=== PATIENT | female | born 1975 | race Caucasian/White ===

== ENCOUNTER 2017-10-10 09:33 | Emergency (ER) | payer OTHER ==
[2017-10-10 09:46] VITALS: RESP 16
--- NOTE | 2017-10-10 09:50 | C.PDOC ---
History Of Present Illness 42 y/o female presents to the ER complaining of a worsening sore throat for the past 6 day. She reports taking three doses of zpak with no relief. The patient admits to voice change and pain worsening with swallowing. Her TM upon arrival was 101. She denies any nausea, vomiting or dizziness. WORSENING SORE THROAT X 6 DAYS. ON ZPAK X 3 DOSES NO IMPROVE. TM 101. +VOICE CHANGE, WORSE W SWALLOWING. EXAM MILD DIST NONTOXIC HEENT +R TONSIL SWELL W W EXUDATE. +MUFFLED VOICE. NO DROOLING, STRIDOR. MMM NECK SUPPLE REMAINDER NEG Time Seen by Provider: 10/10/17 09:48 Chief Complaint (Nursing): ENT Problem History Per: Patient History/Exam Limitations: no limitations Onset/Duration Of Symptoms: Days Current Symptoms Are (Timing): Still Present Location Of Pain: Throat Associated Symptoms: Fever, Sore Throat. denies: Nausea, Vomiting Recent travel outside of the [place]: No Past Medical History Reviewed: Historical Data, Nursing Documentation, Vital Signs Vital Signs: Last Vital Signs Temp 98.0 F 10/10/17 12:41 Pulse 65 10/10/17 12:41 Resp 16 10/10/17 12:41 BP 107/70 10/10/17 12:41 Pulse Ox 98 10/10/17 13:59 - Medical History PMH: No Chronic Diseases Surgical History: No Surg Hx Family History: States: Unknown Family Hx - Social History Hx Tobacco Use: No Hx Alcohol Use: No Hx Substance Use: No - Immunization History Hx Tetanus Toxoid Vaccination: No Hx Influenza Vaccination: No Hx Pneumococcal Vaccination: No Review Of Systems Except As Marked, All Systems Reviewed And Found Negative. Constitutional: Positive for: Fever ENT: Positive for: Throat Pain Gastrointestinal: Negative for: Nausea, Vomiting Neurological: Negative for: Dizziness Physical Exam - Physical Exam Appears: Well, Non-toxic, No Acute Distress Skin: Normal Color, Warm, No Rash Head: Atraumatic, Normacephalic Eye(s): bilateral: Normal Inspection, PERRL, EOMI Ear(s): Bilateral: Normal Oral Mucosa: Moist, No Drooling, Other (scattered mucous lesions consistant with viral) Throat: Exudate (+R TONSIL SWELL W EXUDATE), Other (+MUFFLED VOICE) Neck: Normal ROM, Supple Chest: Symmetrical Cardiovascular: Rhythm Regular, No Murmur Respiratory: Normal Breath Sounds, Stridor, Other (NARD) Gastrointestinal/Abdominal: Bowel Sounds, Soft, No Tenderness Extremity: Normal ROM Extremity: Bilateral: Atraumatic, Normal Color And Temperature, Normal ROM Pulses: Left Radial: Normal, Right Radial: Normal Neurological/Psych: Oriented x3 Gait: Steady ED Course And Treatment - Laboratory Results Result Diagrams: 10/10/17 10:07 10/10/17 10:07 O2 Sat by Pulse Oximetry: 98 (RA) Pulse Ox Interpretation: Normal - CT Scan/US CT Neck Other Rad Studies (CT/US): Read By Radiologist, Radiology Report Reviewed CT/US Interpretation: FINDINGS: NASOPHARYNX: Unremarkable. SUPRAHYOID NECK: Unremarkable oropharynx, oral cavity, parapharyngeal space and retropharyngeal space. INFRAHYOID NECK: Unremarkable larynx, hypopharynx, and supraglottic space. Vocal cords intact. MASS: None. GLANDS: Parotid and submandibular glands unremarkable. Normal size thyroid gland, without nodule. LYMPH NODES: Mild bilateral jugular digastric lymphadenopathy including a 2.1 x 1.0 cm right jugular digastric lymph node level 3 with a similar enlarged lymph node at the left is jugular digastric lymph node chain measuring 2.0 x 1.3 cm a nearly identical level as the right dominant lymph node Borderline right submandibular lymphadenopathy. CERVICAL SPINE: No fracture or focal lesion. VASCULAR STRUCTURES: Unremarkable. OTHER FINDINGS: Trace maxillary sinusitis. IMPRESSION: Mild bilateral jugular digastric lymphadenopathy. Borderline right submandibular lymphadenopathy. No cystic/solid super or infrahyoid neck mass. No abscess formation. Progress Note: Impression: 42 y/o female with worsening sore throat, fever and voice change. Plan: --Neck CT. --BMP. --CBC. --Toradol 30 mg IV. -- Decadron Inj 10 mg IV Progress - Re-Evaluation Re-evaluation Note: 10/10/17 12:56 PAIN IMPROVED. STILL CO PERSIST PAINFUL ORAL LESIONS. VISCOUS LIDO, NSAIDS - Data Reviewed Data Reviewed: Lab, Diagnostic imaging Disposition Counseled Patient/Family Regarding: Studies Performed, Diagnosis, Need For Followup, Rx Given - Disposition Referrals: [facility] [Outside] [facility] [Outside] Disposition: HOME/ ROUTINE Disposition Time: 12:57 Condition: IMPROVED Prescriptions: Ibuprofen [Motrin] 600 mg PO Q6 #30 tab Lidocaine 2% Viscous 100 ml MM Q4 PRN #1 udc PRN Reason: Pain, Moderate (4-7) Instructions: Mouth Sores (DC) Forms: [employer] [facility] (Honduran) - Clinical Impression Clinical Impression: Stomatitis, viral - PA / KNUCKLE [employer]ER / Resident Statement MD/DO has reviewed & agrees with the documentation as recorded. - Scribe Statement The provider has reviewed the documentation as recorded by the Scribe (Christa Jose) Provider Attestation: All medical record entries made by the Scribe were at my direction and personally dictated by me. I have reviewed the chart and agree that the record accurately reflects my personal performance of the history, physical exam, medical decision making, and the department course for this patient. I have also personally directed, reviewed, and agree with the discharge instructions and disposition.
[2017-10-10 10:10] LABS: BASO # 0.1 K/uL (0.0-0.2); EOS % 0.3 % (0.0-4.0); LYMPH # 1.7 K/uL (1.0-4.3); LYMPH % 26.2 % (20.0-40.0); MEAN CORPUSCULAR HGB CONC 33.7 g/dL (33.0-37.0); MEAN PLATELET VOLUME 7.2 fL (7.2-11.7); MONO # 0.5 K/uL (0.0-0.8); MONO % 7.8 % (0.0-10.0); NEUT # 4.2 K/uL (1.8-7.0); NEUT % 64.7 % (50.0-75.0); RBC 4.52 Mil/uL (3.80-5.20); RED CELL DISTRIBUTION WIDTH 13.8 % (11.5-14.5); WHITE BLOOD COUNT 6.5 K/uL (4.8-10.8)
[2017-10-10 10:24] LABS: BLOOD UREA NITROGEN 7 mg/dL (7-17); GFR AFRICAN-AMERICAN > 60; GFR NON-AFRICAN AMERICAN > 60
[2017-10-10] MEDS ORDERED: Iodixanol 320 MG/ML 100 ML BOTTLE IV ONE (10:54)
--- NOTE | 2017-10-10 12:36 | CT ---
Date of service: 10/10/2017 PROCEDURE: CT NECK WITH CONTRAST HISTORY: SORE THROAT, MUFFLED VOICE RO ABSCESS COMPARISON: None available. TECHNIQUE: CT of the neck with intravenous contrast. Coronal and sagittal reformats generated. Intravenous contrast dose: Visipaque 320, 100 cc Radiation dose: DLP 372.55 mGy-cm This CT exam was performed using one or more of the following dose reduction techniques: Automated exposure control, adjustment of the mA and/or kV according to patient size, and/or use of iterative reconstruction technique. FINDINGS: NASOPHARYNX: Unremarkable. SUPRAHYOID NECK: Unremarkable oropharynx, oral cavity, parapharyngeal space and retropharyngeal space. INFRAHYOID NECK: Unremarkable larynx, hypopharynx, and supraglottic space. Vocal cords intact. MASS: None. GLANDS: Parotid and submandibular glands unremarkable. Normal size thyroid gland, without nodule. LYMPH NODES: Mild bilateral jugular digastric lymphadenopathy including a 2.1 x 1.0 cm right jugular digastric lymph node level 3 with a similar enlarged lymph node at the left is jugular digastric lymph node chain measuring 2.0 x 1.3 cm a nearly identical level as the right dominant lymph node Borderline right submandibular lymphadenopathy. CERVICAL SPINE: No fracture or focal lesion. VASCULAR STRUCTURES: Unremarkable. OTHER FINDINGS: Trace maxillary sinusitis. IMPRESSION: Mild bilateral jugular digastric lymphadenopathy. Borderline right submandibular lymphadenopathy. No cystic/solid super or infrahyoid neck mass. No abscess formation.
[2017-10-10 12:42] VITALS: BP 107/70; PULSE 65; TEMP 98
[2017-10-10 12:56] VITALS: O2SAT 98
== END 2017-10-10 13:04 | disposition home or self-care (01) ==
LOC: C.ER 09:33
DX: K12.1 Other forms of stomatitis (principal)
CPT/HCPCS: 70491; 80048; 85025; 96374; 96375; 99282; J1100; J1885; Q9967